=== PATIENT | female | born 1995 | race Caucasian/White ===

== ENCOUNTER 2021-09-21 11:55 | Emergency (ER) | payer BC ==
[2021-09-21] MEDS ORDERED: HYDROCODON-ACE1 EAC4 PO (16:29)
== END 2021-09-21 16:41 | disposition home or self-care (01) ==
LOC: ER1 11:55
DX: S92.351A Displaced fracture of fifth metatarsal bone, right foot, initial encounter for closed fracture (principal); S91.311A Laceration without foreign body, right foot, initial encounter; Z23 Encounter for immunization; X58.XXXA Exposure to other specified factors, initial encounter; Y99.0 Civilian activity done for income or pay
CPT/HCPCS: 12002; 73090; 73140; 73630; 90715; 96372; 99283; J0690